=== PATIENT | female | born 1975 | race American Indian/Alaskan Native ===

== ENCOUNTER 2017-02-01 17:00 | Outpatient (CLI) | payer MEDICAID ==
[2017-02-01] MEDS ORDERED: LACTATED RINGERS 500 ML IV ONE (17:09)
[2017-02-01 17:17] VITALS: BP 101/63
[2017-02-01 17:50] LABS: Bilirubin,Urine NEG (Negative); Blood,Urine NEG (Negative); Ketones,Urine 80 mg/dL (Negative); Leukocyte Esterase,Urine NEG (Negative); Mucus,Urine FEW /HPF; Nitrite,Urine NEG (Negative); Protein,Urine <15 mg/dL mg/dL (Negative); Urobilinogen,Urine < 2.0 mg/dL (<2.0)
[2017-02-01] MEDS ORDERED: LACTATED RINGERS 1,000 ML ONE (17:57)
== END 2017-02-01 19:30 | disposition home or self-care (01) ==
LOC: TRG 17:00
PROVIDERS: ATTEND Obstetrics & Gynecology
DX: O09.522 Supervision of elderly multigravida, second trimester (principal); O47.02 False labor before 37 completed weeks of gestation, second trimester; Z3A.27 27 weeks gestation of pregnancy
CPT/HCPCS: 81001; 96360; 96361; J7120

== ENCOUNTER 2017-03-21 18:13 | Outpatient (CLI) | payer SELFPAY ==
[2017-03-21] MEDS ORDERED: LACTATED RINGERS 500 ML IV ONE (19:09)
[2017-03-21 19:11] VITALS: BP 110/63
[2017-03-21 19:42] LABS: Bilirubin,Urine NEG (Negative); Blood,Urine NEG (Negative); Ketones,Urine NEG (Negative); Leukocyte Esterase,Urine NEG (Negative); Mucus,Urine FEW /HPF; Nitrite,Urine NEG (Negative); Urobilinogen,Urine < 2.0 mg/dL (<2.0)
== END 2017-03-21 20:45 | disposition home or self-care (01) ==
LOC: TRG 18:13
PROVIDERS: ATTEND Obstetrics & Gynecology
DX: O09.523 Supervision of elderly multigravida, third trimester (principal); O47.03 False labor before 37 completed weeks of gestation, third trimester; Z3A.34 34 weeks gestation of pregnancy
CPT/HCPCS: 81001; 96360; J7120

== ENCOUNTER 2021-06-14 19:53 | Emergency (ER) | payer SELFPAY ==
[2021-06-14 21:10] VITALS: BP 217/158
[2021-06-14] MEDS ORDERED: HYDROcodone/ACETAMINOPHEN 5-325 MG TAB PO ONE (22:32)
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
== END 2021-06-14 23:20 | disposition home or self-care (01) ==
LOC: ED 19:53
DX: M79.18 Myalgia, other site (principal); R51.9 Headache, unspecified; Z79.899 Other long term (current) drug therapy; Z87.891 Personal history of nicotine dependence; V49.49XA Driver injured in collision with other motor vehicles in traffic accident, initial encounter; Y92.410 Unspecified street and highway as the place of occurrence of the external cause; Y93.89 Activity, other specified; Y99.8 Other external cause status
CPT/HCPCS: 99282